=== PATIENT | male | born 1980 | race Caucasian/White ===

== ENCOUNTER 2020-05-27 13:59 | Emergency (ER) | payer MEDICAID, OTHER ==
[2020-05-27] MEDS ORDERED: Sodium Chloride 0.9% 10 ML Syringe FLUSH PRN (14:05)
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
[2020-05-27 15:16] LABS: BARBITURATE SCREEN,URINE NEGATIVE (NEGATIVE); BENZODIAZEPINES SCREEN,URINE NEGATIVE (NEGATIVE); EDDP,URINE SCREEN NEGATIVE (NEGATIVE); METHAMPHETAMINE SCREEN, URINE NEGATIVE (NEGATIVE); TCA SCREEN,URINE NEGATIVE (NEGATIVE); THC SCREEN,URINE 50 NG/ML NEGATIVE (NEGATIVE)
[2020-05-27 15:16] LABS: ANION GAP 25.4 mmol/L (10-20); CHLORIDE,CL 105 mmol/L (98-107); SODIUM,NA 146 mmol/L (136-145)
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
== END 2020-05-27 16:19 | disposition home or self-care (01) ==
LOC: EDBD 13:59 → VM.ED 13:59
DX: T68.XXXA Hypothermia, initial encounter (principal); I10 Essential (primary) hypertension; R74.8 Abnormal levels of other serum enzymes
CPT/HCPCS: 71045; 80053; 80305-QW; 80307; 81001; 83735; 84443; 84484; 85025; 85610; 85730; 86140; 93005; 93010; 99284; 99285-25